=== PATIENT | female | born 2000 ===

== ENCOUNTER 2021-06-10 12:26 | Inpatient (IN) | payer OTHER ==
[~2021-06-10] VITALS: Ht 167.6 cm; Wt 65.8 kg
[2021-06-10] MEDS ORDERED: PRENA1 TRUE CO1 EACH (12:37)
== END 2021-06-12 11:16 | disposition home or self-care (01) | DRG 833 ==
LOC: ER 12:26 → OB/GYN 18:07
PROVIDERS: ADMIT Obstetrics & Gynecology; ATTEND Obstetrics & Gynecology
PROC: 4A1HXCZ Monitoring of Products of Conception, Cardiac Rate, External Approach (ICD-10-PCS; principal; 2021-06-10)
PROC: BY4FZZZ Ultrasonography of Third Trimester, Single Fetus (ICD-10-PCS; 2021-06-11)
PROC: BU4CZZZ Ultrasonography of Uterus and Ovaries (ICD-10-PCS; 2021-06-11)
DX: O26.892 Other specified pregnancy related conditions, second trimester (principal); E86.0 Dehydration; K52.89 Other specified noninfective gastroenteritis and colitis; Z3A.17 17 weeks gestation of pregnancy; Z20.822 Contact with and (suspected) exposure to COVID-19; E87.8 Other disorders of electrolyte and fluid balance, not elsewhere classified; O99.892 Other specified diseases and conditions complicating childbirth; R10.2 Pelvic and perineal pain; O26.842 Uterine size-date discrepancy, second trimester

== ENCOUNTER 2021-07-08 11:00 | Outpatient (CLI) | payer OTHER ==
[~2021-07-08 11:00] MED LIST: PRENA1 TRUE CO1 EACH
== END 2021-07-08 12:15 | disposition home or self-care (01) ==
LOC: PRENATAL 11:00
PROVIDERS: ATTEND Obstetrics & Gynecology Maternal & Fetal Medicine
DX: O35.0XX0 Maternal care for (suspected) central nervous system malformation in fetus, not applicable or unspecified (principal); O35.3XX0 Maternal care for (suspected) damage to fetus from viral disease in mother, not applicable or unspecified; Z3A.21 21 weeks gestation of pregnancy

== ENCOUNTER 2021-08-07 15:50 | Emergency (ER) | payer OTHER ==
[~2021-08-07] VITALS: Ht 170.2 cm; Wt 69.4 kg
[2021-08-07] MEDS ORDERED: ZOFRAN8 MG PO (22:37)
[2021-08-07] MEDS ORDERED: PEPCID AC20 MG PO (22:37)
== END 2021-08-07 22:46 | disposition home or self-care (01) ==
LOC: ER 15:50
DX: O26.893 Other specified pregnancy related conditions, third trimester (principal); Z3A.28 28 weeks gestation of pregnancy; K52.9 Noninfective gastroenteritis and colitis, unspecified; R11.0 Nausea; Z20.822 Contact with and (suspected) exposure to COVID-19

== ENCOUNTER 2021-09-03 19:13 | Outpatient (CLI) | payer OTHER ==
[~2021-09-03 19:13] MED LIST changes: +PEPCID AC20 MG PO; +ZOFRAN8 MG PO
== END 2021-09-04 12:06 | disposition home or self-care (01) ==
LOC: OBS/DEL 19:13
PROVIDERS: ATTEND Obstetrics & Gynecology
DX: O47.03 False labor before 37 completed weeks of gestation, third trimester (principal); Z3A.30 30 weeks gestation of pregnancy

== ENCOUNTER 2021-10-19 00:30 | Outpatient (CLI) | payer OTHER | END 2021-10-19 13:00 | disposition home or self-care (01) | LOC: OBS/DEL 00:30 | PROVIDERS: ATTEND Obstetrics & Gynecology | DX: O36.63X0 Maternal care for excessive fetal growth, third trimester, not applicable or unspecified (principal); O47.03 False labor before 37 completed weeks of gestation, third trimester; Z3A.36 36 weeks gestation of pregnancy ==

== ENCOUNTER 2021-10-22 10:31 | Outpatient (CLI) | payer OTHER | END 2021-10-22 11:35 | disposition home or self-care (01) | LOC: PRENATAL 10:31 | PROVIDERS: ATTEND Obstetrics & Gynecology Maternal & Fetal Medicine | DX: O26.849 Uterine size-date discrepancy, unspecified trimester (principal); O36.8991 Maternal care for other specified fetal problems, unspecified trimester, fetus 1; O35.0XX0 Maternal care for (suspected) central nervous system malformation in fetus, not applicable or unspecified; Z3A.36 36 weeks gestation of pregnancy ==